=== PATIENT | female | born 1950 | race Caucasian/White ===

== ENCOUNTER 2018-05-08 05:28 | Inpatient (IN) | payer MEDICARE, BC ==
[2018-05-08] MEDS ORDERED: LACTATED RINGER'S 1,000 ML (ENTER RATE) IV* (05:30)
[2018-05-08] MEDS: BUPIVACAINE 0.25% (MPF) 30 ML INJ (06:53)
[2018-05-08] MEDS ORDERED: GELATIN SIZE 100 SPONGE (06:53)
[2018-05-08] MEDS ORDERED: THROMBIN 5000 UNIT VIAL (06:54)
[2018-05-08] MEDS: POLYMYXIN/BACITRACIN 1L IRRIG (06:54)
[2018-05-08] MEDS ORDERED: DIPHENHYDRAMINE 50 MG INJ IV (07:00)
[2018-05-08] MEDS ORDERED: IPRATROPIUM (NEB) 0.5 MG/2.5 ML AMP HHN (07:00)
[2018-05-08] MEDS ORDERED: LABETALOL HCL 20MG INJ IV (07:00)
[2018-05-08] MEDS: CEFAZOLIN 2 GM/50 ML (PMX) 50 ML IVPB (07:00)
[2018-05-08] MEDS ORDERED: FENTAnyl 50 MCG/ML VIAL IV ×2 (07:00)
[2018-05-08] MEDS ORDERED: LEVALBUTEROL (NEB) 1.25 MG/0.5 ML AMP HHN (07:00)
[2018-05-08] MEDS ORDERED: hydrALAzine 20 MG INJ IV (07:00)
[2018-05-08] MEDS ORDERED: HYDROmorphONE 1 MG/5 ML IV SYRINGE IV ×2 (07:00)
[2018-05-08] MEDS ORDERED: FENTAnyl 50 MCG/ML VIAL ×2 (07:03→07:35)
[2018-05-08] MEDS ORDERED: MIDAZOLAM 1 MG/ML 2 ML INJ (07:03)
[2018-05-08] MEDS ORDERED: LIDOCAINE 2% (SDV) 5 ML INJ (07:04)
[2018-05-08] MEDS ORDERED: PROPOFOL 20 ML (07:04)
[2018-05-08] MEDS ORDERED: ACETAMINOPHEN 1000MG/100ML IV 100 ML (07:04)
[2018-05-08] MEDS ORDERED: SUCCINYLCHOLINE CHLORIDE 100 MG/5 ML SYG IV (07:04)
[2018-05-08] MEDS ORDERED: ROCURONIUM 50 MG INJ (07:04)
[2018-05-08] MEDS ORDERED: ONDANSETRON 4 MG INJ (07:08)
[2018-05-08] MEDS ORDERED: KETAMINE (100 MG/ML) 5 ML VIAL (07:15)
[2018-05-08] MEDS ORDERED: hydrALAzine 20 MG INJ (08:59)
[2018-05-08] MEDS ORDERED: NACL 0.9% 3 ML SYG IV (10:30)
[2018-05-08] MEDS ORDERED: DIPHENHYDRAMINE 50 MG CAP PO (10:30)
[2018-05-08] MEDS ORDERED: ZOLPIDEM 5 MG TAB PO (10:30)
[2018-05-08] MEDS ORDERED: AL HYDROX/MG HYDROX/SIMETH 30 ML CUP PO (10:30)
[2018-05-08] MEDS ORDERED: BETHANECHOL 25 MG TAB PO (10:30)
[2018-05-08] MEDS ORDERED: NALOXONE (0.4 MG/ML) INJ IV (10:30)
[2018-05-08] MEDS ORDERED: DIAZEPAM 5 MG/ML SYG IM (10:30)
[2018-05-08] MEDS ORDERED: CEPASTAT LOZENGE MT (10:30)
[2018-05-08] MEDS ORDERED: HYDROCODONE/APAP (5/325) TAB PO (10:30)
[2018-05-08] MEDS ORDERED: DIAZEPAM 5 MG TAB PO (10:30)
[2018-05-08] MEDS ORDERED: ACETAMINOPHEN 325 MG TAB PO (10:30)
[2018-05-08] MEDS ORDERED: PROCHLORPERAZINE 10 MG TAB PO (10:30)
[2018-05-08] MEDS ORDERED: TRIMETHOBENZAMIDE 100 MG/ML VIAL IM (10:30)
[2018-05-08] MEDS: MEPERIDINE 25 MG INJ IV (10:47)
[2018-05-08] MEDS: ONDANSETRON 4 MG INJ IV ×2 (10:47→19:47)
[2018-05-08] MEDS: HYDROmorphONE 1 MG/5 ML IV SYRINGE IV (10:48)
[2018-05-08] MEDS: HYDROmorphONE 0.2 MG/ML PCA IV ×2 (10:52→10:57)
[2018-05-08] MEDS: CEFAZOLIN 1 GM/50 ML (PMX) 50 ML IVPB ×3 (11:36→23:43)
[2018-05-08] MEDS: DEXTROSE 5%-0.45% NACL 1,000 ML IV ×2 (13:23→23:43)
[2018-05-08] MEDS: MONTELUKAST 10 MG TAB PO (20:34)
[2018-05-08] MEDS: RANITIDINE 150 MG TAB PO (20:34)
[2018-05-08] MEDS ORDERED: RANITIDINE 150 MG TAB PO (21:00)
[2018-05-09] MEDS: ONDANSETRON 4 MG INJ IV ×2 (04:17→09:41)
[2018-05-09 05:13] LABS: HEMATOCRIT 33.3 % (37.0-47.0); HEMOGLOBIN 10.7 g/dl (12.0-16.0)
[2018-05-09 05:39] LABS: ALANINE AMINOTRANSFERASE 30 IU/L (13-69); ALBUMIN/GLOBULIN RATIO 1.11; ALKALINE PHOSPHATASE 49 IU/L (42-121); ANION GAP 13 (8-16); ASPARTATE AMINO TRANSFERASE 19 IU/L (15-46); BILIRUBIN,INDIRECT 0.4 mg/dl (0-1.1); BILIRUBIN,TOTAL 0.4 mg/dl (0.2-1.3); BLOOD UREA NITROGEN 10 mg/dl (7-20); CARBON DIOXIDE 27 mmol/L (21-31); CHLORIDE 104 mmol/L (97-110); CREATININE 0.76 mg/dl (0.44-1.00); GLUCOSE 131 mg/dl (70-220); POTASSIUM 3.7 mmol/L (3.5-5.1); SODIUM 140 mmol/L (135-144); TOTAL PROTEIN 5.7 g/dl (6.1-8.1)
[2018-05-09] MEDS: LEVOTHYROXINE 75 MCG TAB PO (05:57)
[2018-05-09] MEDS: CEFAZOLIN 1 GM/50 ML (PMX) 50 ML IVPB (05:57)
[2018-05-09] MEDS: PANTOPRAZOLE (EC) 40 MG TAB PO (05:57)
[2018-05-09] MEDS: DEXTROSE 5%-0.45% NACL 1,000 ML IV ×2 (06:13→16:13)
[2018-05-09] MEDS: RANITIDINE 150 MG TAB PO (09:45)
[2018-05-09] MEDS: DOCUSATE SODIUM 100 MG CAP PO (09:45)
[2018-05-09] MEDS: LORATADINE 10 MG TAB PO (09:45)
[2018-05-09] MEDS: FERROUS SULFATE (EC) 325 MG TAB PO ×2 (09:45→13:00)
[2018-05-09] MEDS: HYDROCODONE/APAP (5/325) TAB PO ×2 (09:46→14:10)
[2018-05-09] MEDS: BETHANECHOL 25 MG TAB PO (09:46)
[2018-05-09] MEDS: CALCIUM/VITAMIN D (500/200) TAB PO (09:46)
[2018-05-09] MEDS: CHOLECALCIFEROL 1,000 UNIT TAB PO (09:46)
[2018-05-09] MEDS: ASCORBIC ACID 500 MG TAB PO (09:46)
[2018-05-09] MEDS: LISINOPRIL 5 MG TAB PO (09:47)
[2018-05-10 03:17] LABS: ADD UMIC YES; UR ASCORBIC ACID NEGATIVE (NEGATIVE); UR BILIRUBIN (Dip) NEGATIVE (NEGATIVE); UR BLOOD (Dip) 1+ mg/dL (NEGATIVE); UR CLARITY CLEAR (CLEAR); UR COLOR STRAW (YELLOW); UR GLUCOSE (Dip) NEGATIVE (NEGATIVE); UR KETONES (Dip) NEGATIVE (NEGATIVE); UR LEUKOCYTE ESTERASE (Dip) NEGATIVE Leu/ul (NEGATIVE); UR NITRITE (Dip) NEGATIVE (NEGATIVE); UR RBC 1 /HPF (0-5); UR SPECIFIC GRAVITY (Dip) 1.008 (1.003-1.030); UR TOTAL PROTEIN (Dip) NEGATIVE (NEGATIVE); UR UROBILINOGEN (Dip) NEGATIVE (NEGATIVE); UR WBC 4 /HPF (0-5)
== END 2018-05-09 17:56 | disposition home or self-care (01) | DRG 520 ==
LOC: REC 05:28 → MS1 11:44
PROC: 01NB0ZZ Release Lumbar Nerve, Open Approach (ICD-10-PCS; principal; 2018-05-08 07:00)
PROC: 0SB40ZZ Excision of Lumbosacral Disc, Open Approach (ICD-10-PCS; 2018-05-08 07:00)
DX: M48.061 Spinal stenosis, lumbar region without neurogenic claudication (principal); M51.27 Other intervertebral disc displacement, lumbosacral region; E03.9 Hypothyroidism, unspecified; I10 Essential (primary) hypertension; K21.9 Gastro-esophageal reflux disease without esophagitis; J30.9 Allergic rhinitis, unspecified; M85.80 Other specified disorders of bone density and structure, unspecified site; Z78.0 Asymptomatic menopausal state
CPT/HCPCS: 72020; 80053; 81001; 85014; 85018; 86850; 86900; 86901; 86920; 87086; 88304; 88311; 97116; 97161; 97530